=== PATIENT | male | born 1955 | race Caucasian/White ===

== ENCOUNTER 2021-03-04 10:59 | Emergency (ER) | payer MEDICAID ==
[~2021-03-04] VITALS: Ht 170.2 cm; Wt 95.0 kg
[~2021-03-04 10:59] MED LIST: ENALAPRIL; GLIPIZIDE; KETOCONAZOLE; METFORMIN; PERIACTIN
[2021-03-04] MEDS ORDERED: IBUPROFEN 600MG TABLET PO ONE (11:45)
[2021-03-04 12:00] LABS: BASOPHILS % 0.7 % (0.0-2.0); HEMATOCRIT. 43.2 % (42.0-52.0); HEMOGLOBIN. 14.4 g/dL (14.0-18.0); LYMPHOCYTES % 32.2 % (20.0-50.0); MEAN CORPUSCULAR HEMOGLOBIN 30.3 pg (28.0-32.0); MEAN CORPUSCULAR VOLUME 90.9 fL (80.0-94.0); MEAN PLATELET VOLUME 8.7 fl (7.4-10.4); NEUTROPHILS % 57.1 % (40.0-76.0); PLATELET 258 x1000/uL (130-400); RED BLOOD CELL COUNT 4.76 mill/uL (4.7-6.1); RED CELL DISTRIBUTION WIDTH 13.9 % (11.6-14.6)
[2021-03-04 12:06] LABS: CHLORIDE 103 mEq/L (98-107)
[2021-03-04] MEDS ORDERED: IBUP-2028 MT (14:24)
[2021-03-04 14:54] VITALS: BP 140/68
== END 2021-03-04 14:56 | disposition home or self-care (01) ==
LOC: ER 10:59
DX: R07.9 Chest pain, unspecified (principal); M54.9 Dorsalgia, unspecified; E11.9 Type 2 diabetes mellitus without complications; E78.00 Pure hypercholesterolemia, unspecified; I10 Essential (primary) hypertension; Z98.890 Other specified postprocedural states; V49.40XA Driver injured in collision with unspecified motor vehicles in traffic accident, initial encounter; Y93.89 Activity, other specified; Y92.410 Unspecified street and highway as the place of occurrence of the external cause
CPT/HCPCS: 36415; 71111; 72070; 72100; 80053; 83880; 84484; 85025; 93005; 99285; Z7610